=== PATIENT | female | born 1980 | race Caucasian/White ===

== ENCOUNTER 2019-09-20 12:45 | Emergency (ER) | payer BC ==
[~2019-09-20] VITALS: Ht 170.2 cm; Wt 97.1 kg
[2019-09-20 13:11] VITALS: BP_SYST 174
--- NOTE | 2019-09-20 13:36 | NUR ---
ER at bedside examining patient.
[2019-09-20] MEDS ORDERED: KETOROLAC TROMETHAMINE 60 MG/2 ML VIAL IM ONE (13:45)
--- NOTE | 2019-09-20 13:45 | NUR ---
pt arrives from [facility] w/ c/o 08/15 left flank pain. No other related symptoms at the moment
--- NOTE | 2019-09-20 13:50 | NUR ---
pt getting labs drawn at the bedside
--- NOTE | 2019-09-20 14:10 | NUR ---
Medicated the pt w/ Toradol per MD order
[2019-09-20 14:25] LABS: BASOPHILS % (AUTO) 0.3 % (0.0-2.0); EOSINOPHILS # (AUTO) 0.1 K/uL (0.0-0.4); EOSINOPHILS % (AUTO) 0.6 % (0.0-4.0); HEMOGLOBIN 13.1 g/dL (12.0-16.0); LYMPHOCYTES # (AUTO) 2.2 K/uL (1.0-5.5); LYMPHOCYTES % (AUTO) 20.7 % (20.5-51.5); MEAN CORPUSCULAR HEMOGLOBIN 26 pg (27-31); MEAN CORPUSCULAR HGB CONC 34 % (32-36); MEAN CORPUSCULAR VOLUME 77 fL (79.0-98.0); MONOCYTES # (AUTO) 0.5 K/uL (0.0-1.0); MONOCYTES % (AUTO) 4.3 % (1.7-9.3); NEUTROPHILS # (AUTO) 7.7 K/uL (1.8-7.7); NEUTROPHILS % (AUTO) 74.1 % (40.0-70.0); PLATELET COUNT (AUTO) 358 K/uL (130-430); RED BLOOD CELL COUNT(AUTO) 5.07 MIL/uL (4.2-6.2); RED CELL DISTRIBUTION WIDTH 14.5 % (9.0-15.0); WHITE BLOOD COUNT (AUTO) 10.4 K/uL (4.8-10.8)
[2019-09-20 14:41] LABS: CALCIUM 8.6 mg/dL (8.4-11.0); CREATININE 0.7 mg/dL (0.55-1.30); POTASSIUM 3.5 mmol/L (3.5-5.1)
[2019-09-20 14:45] LABS: ALBUMIN 3.6 g/dL (3.4-4.8); TOTAL BILIRUBIN 0.3 mg/dL (0.0-1.0)
[2019-09-20 14:50] LABS: PROTHROMBIN TIME 9.7 SECS (9.5-12.5)
[2019-09-20 15:20] VITALS: BP_SYST 141
--- NOTE | 2019-09-20 15:20 | NUR ---
James gant in EDM - 09/20/19 at 1944 by ERNIE pt arrives from home w/ c/o left flank pain 08/15. No other related symptoms at the moment
--- NOTE | 2019-09-20 15:22 | NUR ---
Patient given written and verbal discharge instructions and verbalizes understanding. ER MD discussed with patient the results and treatment provided. Patient in stable condition. ID arm band removed. Rx of Motrin and Bostic given. Patient educated on pain management and to follow up with PMD. Pain Scale 3/10. Opportunity for questions provided and answered. Medication side effect fact sheet provided.
== END 2019-09-20 15:22 | disposition home or self-care (01) ==
LOC: SED 12:45
DX: R10.32 Left lower quadrant pain (principal); R03.0 Elevated blood-pressure reading, without diagnosis of hypertension
CPT/HCPCS: 36415; 74176; 80053; 81002; 81025; 82150; 83690; 84703; 85025; 85610; 85730; 96372; 99284; J1885